=== PATIENT | female | born 1995 | race African-American/Black ===

== ENCOUNTER 2022-02-22 12:02 | Inpatient (IN) | payer OTHER ==
[~2022-02-22] VITALS: Ht 175.3 cm; Wt 76.7 kg
[2022-02-22] MEDS ORDERED: METOCLOPRAMIDE HCL 10MG/2ML VIAL IV STA (12:17)
[2022-02-22] MEDS ORDERED: SODIUM CHLORIDE 0.9% 1,000 ML IV ONE ×2 (12:30→13:00)
[2022-02-22 12:42] LABS: BASOPHILS % 0.2 % (0.0-2.0); EOSINOPHILS % 0.2 % (0.0-5.0); HEMATOCRIT. 48.3 % (36.0-48.0); HEMOGLOBIN. 16.5 g/dL (12.0-16.0); LYMPHOCYTES % 17.7 % (20.0-50.0); MEAN CORPUSCULAR VOLUME 87.7 fL (81.0-99.0); MEAN PLATELET VOLUME 9.2 fl (7.4-10.4); MONOCYTES % 7.1 % (2.0-8.0); NEUTROPHILS % 74.8 % (40.0-76.0); PLATELET 238 x1000/uL (130-400); RED CELL DISTRIBUTION WIDTH 13.9 % (11.6-14.6)
[2022-02-22 12:43] LABS: CHLORIDE 95 mEq/L (98-107)
[2022-02-22] MEDS ORDERED: MORPHINE SULFATE 4 MG/ML CPJ (NOT FOR IM USE) IV ONE (13:00)
[2022-02-22 13:25] LABS: BETA HYDROXYBUTYRATE 11.2 mMol/L (0.0-0.3)
[2022-02-22] MEDS ORDERED: INSULIN REGULAR 100U/100ML PMX 100 ML IV SCH ×3 (14:00→14:30)
[2022-02-22] MEDS ORDERED: POTASSIUM ACETATE 20 MEQ in SODIUM CHLORIDE 0.9% 1,000 ML IV ONE ×2 (14:00→14:15)
[2022-02-22] MEDS ORDERED: NACL IV ONE (16:30)
[2022-02-22] MEDS ORDERED: CLONIDINE 0.1MG TABLET PO PRN (16:30)
[2022-02-22] MEDS ORDERED: MAGNESIUM/ALUMINUM HYDROXIDE/SIMETHICONE 30ML UDC PO PRN (16:30)
[2022-02-22] MEDS ORDERED: DIPHENHYDRAMINE 50MG/ML VIAL IV PRN (16:30)
[2022-02-22] MEDS ORDERED: DEXT IV ONE (16:30)
[2022-02-22] MEDS ORDERED: ACETAMINOPHEN 325MG TABLET PO PRN (16:30)
[2022-02-22] MEDS ORDERED: LORAZEPAM 2MG/ML CPJ IV PRN (16:30)
[2022-02-22] MEDS ORDERED: DEXTROSE 50% WATER 50ML SYRINGE IV PRN ×2 (16:30)
[2022-02-22] MEDS ORDERED: IPRATROPIUM/ALBUTEROL 0.5-3(2.5)MG/3ML NEB HHN PRN (16:30)
[2022-02-22] MEDS ORDERED: HYDRALAZINE 20MG/ML VIAL IV PRN (16:30)
[2022-02-22] MEDS ORDERED: DOCUSATE SODIUM 100MG CAPSULE PO PRN (16:30)
[2022-02-22] MEDS ORDERED: POTASSIUM ACETATE IV ONE (16:30)
[2022-02-22] MEDS ORDERED: GUAIFENESIN 200MG/10ML SUGAR FREE UDC PO PRN (16:30)
[2022-02-22] MEDS ORDERED: POTASSIUM ACETATE IV NR ×4 (16:45)
[2022-02-22] MEDS ORDERED: DEXT IV NR ×4 (16:45)
[2022-02-22] MEDS ORDERED: NACL IV NR ×4 (16:45)
[2022-02-22] MEDS: MORPHINE SULFATE 2 MG/ML CPJ (NOT FOR IM USE) IV PRN (17:48)
[2022-02-22] MEDS: BLOOD SUGAR DIAGNOSTIC STRIP TEST SCH ×6 (17:48→23:21)
[2022-02-22] MEDS ORDERED: INSULIN REGULAR (DRIP) 100 UNITS in SODIUM CHLORIDE 0.9% 100 ML IV SCH (18:00)
[2022-02-22 18:53] LABS: CHLORIDE 108 mEq/L (98-107)
[2022-02-22] MEDS: ENOXAPARIN 40MG/0.4ML SYR SUBCUT SCH (20:06)
[2022-02-22] MEDS: HYDROCODONE/ACETAMINOPHEN 5/325MG TABLET PO PRN (20:26)
[2022-02-22] MEDS: ONDANSETRON HCL 4MG/2ML INJ IV PRN (20:29)
[2022-02-22] MEDS: SODIUM CHLORIDE 0.9% INJ 3ML FLUSH IVF SCH (23:19)
[2022-02-22] MEDS: SODIUM CHLORIDE 0.45% 1,000 ML IV SCH (23:20)
[2022-02-23] MEDS: BLOOD SUGAR DIAGNOSTIC STRIP TEST SCH ×16 (00:24→22:38)
[2022-02-23] MEDS: SODIUM CHLORIDE 0.45% 1,000 ML IV SCH ×4 (01:06→20:39)
[2022-02-23] MEDS: MORPHINE SULFATE 2 MG/ML CPJ (NOT FOR IM USE) IV PRN ×4 (01:23→20:34)
[2022-02-23] MEDS: ONDANSETRON HCL 4MG/2ML INJ IV PRN ×4 (05:28→20:34)
[2022-02-23] MEDS: HYDROCODONE/ACETAMINOPHEN 5/325MG TABLET PO PRN (05:28)
[2022-02-23] MEDS: SODIUM CHLORIDE 0.9% INJ 3ML FLUSH IVF SCH ×3 (06:52→22:40)
[2022-02-23 09:40] LABS: BASOPHILS % 0.3 % (0.0-2.0); CHLORIDE 107 mEq/L (98-107); EOSINOPHILS % 1.2 % (0.0-5.0); HEMATOCRIT. 41.2 % (36.0-48.0); HEMOGLOBIN. 14.1 g/dL (12.0-16.0); MEAN CORPUSCULAR VOLUME 87.9 fL (81.0-99.0); MEAN PLATELET VOLUME 8.8 fl (7.4-10.4); MONOCYTES % 7.2 % (2.0-8.0); NEUTROPHILS % 68.3 % (40.0-76.0); PLATELET 204 x1000/uL (130-400); RED BLOOD CELL COUNT 4.69 mill/uL (4.2-5.4); RED CELL DISTRIBUTION WIDTH 13.8 % (11.6-14.6)
[2022-02-23] MEDS ORDERED: DEXTROSE 50% WATER 50ML SYRINGE IV PRN (11:30)
[2022-02-23] MEDS ORDERED: INSULIN GLARGINE 100 UNITS/ML SUBCUT SCH (12:00)
[2022-02-23] MEDS: INSULIN LISPRO (HIGH DOSE) 100 UNITS/ML SUBCUT SCH ×2 (12:00→18:32)
[2022-02-23] MEDS ORDERED: POTASSIUM CHLORIDE 20MEQ TABLET SR PO NR (17:00)
[2022-02-23] MEDS: ENOXAPARIN 40MG/0.4ML SYR SUBCUT SCH (18:28)
[2022-02-23] MEDS ORDERED: NALOXONE HCL 0.4MG/ML VIAL IV PRN (21:00)
[2022-02-24] MEDS: HYDROCODONE/ACETAMINOPHEN 5/325MG TABLET PO PRN (00:32)
[2022-02-24] MEDS: INSULIN LISPRO (HIGH DOSE) 100 UNITS/ML SUBCUT SCH ×5 (01:01→22:50)
[2022-02-24] MEDS: SODIUM CHLORIDE 0.45% 1,000 ML IV SCH ×4 (02:20→22:47)
[2022-02-24] MEDS: SODIUM CHLORIDE 0.9% INJ 3ML FLUSH IVF SCH ×3 (06:00→22:47)
[2022-02-24 06:15] LABS: BASOPHILS % 0.6 % (0.0-2.0); EOSINOPHILS % 1.8 % (0.0-5.0); HEMATOCRIT. 40.1 % (36.0-48.0); HEMOGLOBIN. 13.7 g/dL (12.0-16.0); LYMPHOCYTES % 34.7 % (20.0-50.0); MEAN CORPUSCULAR HEMOGLOBIN 30.1 pg (28.0-32.0); MEAN CORPUSCULAR VOLUME 88.5 fL (81.0-99.0); MEAN PLATELET VOLUME 8.7 fl (7.4-10.4); MONOCYTES % 10.4 % (2.0-8.0); NEUTROPHILS % 52.5 % (40.0-76.0); PLATELET 200 x1000/uL (130-400); RED BLOOD CELL COUNT 4.54 mill/uL (4.2-5.4); RED CELL DISTRIBUTION WIDTH 13.7 % (11.6-14.6)
[2022-02-24 06:20] LABS: CHLORIDE 105 mEq/L (98-107)
[2022-02-24] MEDS: BLOOD SUGAR DIAGNOSTIC STRIP TEST SCH ×4 (08:35→21:00)
[2022-02-24 09:10] VITALS: BP 111/92
[2022-02-24] MEDS: ONDANSETRON HCL 4MG/2ML INJ IV PRN (09:41)
[2022-02-24] MEDS: MORPHINE SULFATE 2 MG/ML CPJ (NOT FOR IM USE) IV PRN ×3 (09:42→22:51)
[2022-02-24 11:32] VITALS: BP 118/83
[2022-02-24 15:40] VITALS: BP 116/70
[2022-02-24] MEDS: ENOXAPARIN 40MG/0.4ML SYR SUBCUT SCH (17:42)
[2022-02-24 20:00] VITALS: BP 124/71
[2022-02-25] VITALS: BP 121/75
[2022-02-25 04:00] VITALS: BP 107/80
[2022-02-25] MEDS: SODIUM CHLORIDE 0.9% INJ 3ML FLUSH IVF SCH ×2 (06:11→13:39)
[2022-02-25] MEDS: BLOOD SUGAR DIAGNOSTIC STRIP TEST SCH ×2 (06:11→11:55)
[2022-02-25] MEDS: INSULIN LISPRO (HIGH DOSE) 100 UNITS/ML SUBCUT SCH ×2 (06:12→12:00)
[2022-02-25] MEDS: SODIUM CHLORIDE 0.45% 1,000 ML IV SCH ×2 (06:12→11:59)
[2022-02-25] MEDS: MORPHINE SULFATE 2 MG/ML CPJ (NOT FOR IM USE) IV PRN ×2 (06:30→13:42)
[2022-02-25 07:36] VITALS: BP 146/99
[2022-02-25] MEDS: HYDROCODONE/ACETAMINOPHEN 5/325MG TABLET PO PRN (08:40)
[2022-02-25 12:00] VITALS: BP 125/84
[2022-02-25] MEDS ORDERED: INSULIN GLARGINE 100 UNITS/ML SUBCUT SCH (12:00)
[2022-02-25] MEDS ORDERED: INSU100I28 SQ (12:03)
[2022-02-25 14:55] VITALS: BP 125/84
== END 2022-02-25 16:40 | disposition home or self-care (01) | DRG 420 ==
LOC: ER 12:02 → MICUSO 16:25 → EDBEDREQTM 16:35 → EDBEDREQ 16:35 → ENRESERV 22:12 → CANRESERV 22:12 → EDBEDREQSVC 02-23 18:31 → 7EST 02-24 09:07
PROVIDERS: ADMIT Internal Medicine; ATTEND Internal Medicine
DX: E11.10 Type 2 diabetes mellitus with ketoacidosis without coma (principal); R65.10 Systemic inflammatory response syndrome (SIRS) of non-infectious origin without acute organ dysfunction; E11.43 Type 2 diabetes mellitus with diabetic autonomic (poly)neuropathy; E87.1 Hypo-osmolality and hyponatremia; E86.0 Dehydration; K31.84 Gastroparesis; Z79.4 Long term (current) use of insulin; Z91.19 Patient's noncompliance with other medical treatment and regimen; Z91.14 Patient's other noncompliance with medication regimen; Z91.010 Allergy to peanuts; Z79.899 Other long term (current) drug therapy
CPT/HCPCS: 36415; 80048; 80053; 82010; 82962; 83880; 84443; 85025; 99291; J1650; J1815; J2270; J2405; J2765; J3490; J7030; J7040; J7042

== ENCOUNTER 2022-03-09 13:46 | Emergency (ER) | payer OTHER ==
[~2022-03-09] VITALS: Ht 172.7 cm; Wt 66.0 kg
[~2022-03-09 13:46] MED LIST: INSU100I28 SQ
[2022-03-09] MEDS ORDERED: SODIUM CHLORIDE 0.9% 1000ML BAG (SEPSIS BOLUS) IV ONE (14:00)
[2022-03-09 14:46] LABS: BASOPHILS % 0.2 % (0.0-2.0); EOSINOPHILS % 0.2 % (0.0-5.0); HEMATOCRIT. 38.7 % (36.0-48.0); HEMOGLOBIN. 13.2 g/dL (12.0-16.0); LYMPHOCYTES % 8.5 % (20.0-50.0); MEAN CORPUSCULAR HEMOGLOBIN 29.6 pg (28.0-32.0); MEAN CORPUSCULAR VOLUME 86.8 fL (81.0-99.0); MEAN PLATELET VOLUME 9.4 fl (7.4-10.4); MONOCYTES % 9.4 % (2.0-8.0); NEUTROPHILS % 81.7 % (40.0-76.0); PLATELET 183 x1000/uL (130-400); RED BLOOD CELL COUNT 4.46 mill/uL (4.2-5.4); RED CELL DISTRIBUTION WIDTH 13.4 % (11.6-14.6)
[2022-03-09 14:57] LABS: CHLORIDE 93 mEq/L (98-107)
[2022-03-09] MEDS ORDERED: CLINDAMYCIN 600 MG in DEXTROSE 5% WATER 50 ML IV ONE (18:30)
[2022-03-09 18:33] LABS: HCG SCREEN NEGATIVE
[2022-03-09] MEDS ORDERED: CLINDAMYCIN 600 MG PREMIX 50 ML IV NR (18:45)
[2022-03-09 20:31] LABS: CLARITY URINE CLEAR (CLEAR); COLOR URINE YELLOW (YELLOW); KETONES URINE 1+ (NEGATIVE); LEUKOCYTE ESTERASE URINE NEGATIVE (NEGATIVE); NITRITE URINE NEGATIVE (NEGATIVE); OCCULT BLOOD URINE NEGATIVE (NEGATIVE); PH URINE 5.5 (4.5-8.0); PROTEIN URINE NEGATIVE (NEGATIVE); SPECIFIC GRAVITY URINE 1.035 (1.005-1.030); UROBILINOGEN URINE 0.2 E.U./dL (0.2-1.0)
[2022-03-09] MEDS ORDERED: INSULIN REGULAR (HUMULIN R) 300UNITS/3ML VIAL SUBCUT ONE (21:00)
[2022-03-09 21:45] VITALS: BP 111/75
[2022-03-09] MEDS ORDERED: IOHEXOL-300 100 ML BOTTLE ONE (22:58)
== END 2022-03-09 22:00 | disposition short-term general hospital (02) ==
LOC: ER 13:52 → CANBEDREQ 03-10 03:29
DX: L02.31 Cutaneous abscess of buttock (principal); R00.0 Tachycardia, unspecified; I95.9 Hypotension, unspecified; K61.1 Rectal abscess; E11.65 Type 2 diabetes mellitus with hyperglycemia; Z79.4 Long term (current) use of insulin
CPT/HCPCS: 36415; 71045; 74177; 80053; 81003; 82010; 82962; 83605; 84145; 84484; 84703; 85025; 87040; 87086; 96361; 96365; 96372; 99285; J1815; J3490; J7030; Q9967; J7060

== ENCOUNTER 2022-06-13 12:15 | Emergency (ER) | payer OTHER ==
[~2022-06-13] VITALS: Ht 167.6 cm; Wt 68.0 kg
[2022-06-13] MEDS ORDERED: SODIUM CHLORIDE 0.9% 1,000 ML IV ONE ×2 (13:15)
[2022-06-13] MEDS ORDERED: METOCLOPRAMIDE HCL 10MG/2ML VIAL IV ONE (13:15)
[2022-06-13] MEDS ORDERED: KETOROLAC 15MG/ML VIAL IV ONE ×2 (14:30→19:30)
[2022-06-13 14:55] LABS: CLARITY URINE CLEAR (CLEAR); COLOR URINE YELLOW (YELLOW); KETONES URINE 2+ (NEGATIVE); LEUKOCYTE ESTERASE URINE NEGATIVE (NEGATIVE); NITRITE URINE NEGATIVE (NEGATIVE); OCCULT BLOOD URINE NEGATIVE (NEGATIVE); PH URINE >=9.0 (4.5-8.0); PROTEIN URINE NEGATIVE (NEGATIVE); SPECIFIC GRAVITY URINE 1.021 (1.005-1.030); UROBILINOGEN URINE 0.2 E.U./dL (0.2-1.0)
[2022-06-13 15:16] LABS: BASOPHILS % 0.4 % (0.0-2.0); CHLORIDE 101 mEq/L (98-107); EOSINOPHILS % 0.4 % (0.0-5.0); HEMATOCRIT. 41.7 % (36.0-48.0); HEMOGLOBIN. 14.2 g/dL (12.0-16.0); LYMPHOCYTES % 14.5 % (20.0-50.0); MEAN CORPUSCULAR HEMOGLOBIN 29.8 pg (28.0-32.0); MEAN CORPUSCULAR VOLUME 87.8 fL (81.0-99.0); MEAN PLATELET VOLUME 8.8 fl (7.4-10.4); MONOCYTES % 5.6 % (2.0-8.0); NEUTROPHILS % 79.1 % (40.0-76.0); PLATELET 195 x1000/uL (130-400); RED BLOOD CELL COUNT 4.75 mill/uL (4.2-5.4); RED CELL DISTRIBUTION WIDTH 13.7 % (11.6-14.6)
[2022-06-13 15:25] LABS: BETA HYDROXYBUTYRATE 0.8 mMol/L (0.0-0.3)
[2022-06-13 15:37] LABS: HCG SCREEN NEGATIVE
[2022-06-13] MEDS ORDERED: POTASSIUM CHLORIDE 20MEQ TABLET SR PO ONE ×2 (15:45→17:30)
[2022-06-13] MEDS ORDERED: KCL 10MEQ/50ML PREMIX 50 ML IV ONE (15:45)
[2022-06-13] MEDS ORDERED: POTASSIUM CHLORIDE 20MEQ/PACKET PO NR ×3 (18:30→20:00)
[2022-06-13 20:10] VITALS: BP 155/95
== END 2022-06-13 23:05 | disposition short-term general hospital (02) ==
LOC: ER 12:15
DX: R11.15 Cyclical vomiting syndrome unrelated to migraine (principal); E87.6 Hypokalemia; R10.84 Generalized abdominal pain; R03.0 Elevated blood-pressure reading, without diagnosis of hypertension; R00.0 Tachycardia, unspecified; E11.9 Type 2 diabetes mellitus without complications; Z79.4 Long term (current) use of insulin
CPT/HCPCS: 36415; 71045; 74176; 80053; 81003; 81025; 82010; 83690; 84703; 85025; 93005; 96361; 96365; 96375; 96376; 99285; J1885; J2765; J3480; J7030